=== PATIENT | female | born 1945 | race Caucasian/White ===

== ENCOUNTER → 2017-08-08 | Outpatient (CLI) | payer MEDICARE, OTHER ==
[~2017-08-08] MED LIST: CHOL100052 PO; LOR5 PO; PANT40SU3 PO; PANT40TA65 PO; RETIN A; [UNRECOGNIZED DRUG - CODE] TP; [UNRECOGNIZED DRUG - OTHER]
--- NOTE | 2017-08-10 09:35 | RADIOLOGY IMAGING REPORT ---
FACILITY: [facility] - [place] PATIENT NAME: ELIZABETH HOUSER : [id number] MR: [id number] V: [id number] EXAM DATE: [id number] ORDERING PHYSICIAN: BARRY MCGILL TECHNOLOGIST: Niharika Manjarrez PROCEDURE:BILATERAL DIGITAL SCREENING MAMMOGRAM WITH CAD ASSISTED INTERPRETATION & 3D TOMOSYNTHESIS COMPARISON:Prior mammograms 07/06/16, 05/19/15, 12/31/13, 08/24/12, 05/26/11 INDICATIONS:SCREENING FINDINGS: Moderately heterogeneous fibroglandular tissue is seen throughout the breasts. The parenchymal pattern has remained stable allowing for difference in mammographic technique & patient positioning. There are small amounts of density in the medial inferior portion of Left breast in Zone 2 for which Left breast Ultrasound is recommended. DIAGNOSTIC CATEGORY 0--INCOMPLETE: NEED ADDITIONAL IMAGING EVALUATION. RECOMMENDATIONS: ULTRASOUND: LEFT BREAST. IMPRESSION: BIRADS 0: Incomplete Left breast Ultrasound recommended as described. Dictated by: Melinda Mcghee M.D. on 08/09/2017 at 16:54 Transcribed by: MARISA on 08/10/2017 at 8:31 Approved by: Melinda Mcghee M.D. on 08/10/2017 at 9:34 [facility]
== END ==
LOC: MAMO 02:24
PROVIDERS: ATTEND Nurse Practitioner Psychiatric/Mental Health
DX: Z12.31 Encounter for screening mammogram for malignant neoplasm of breast (principal); R92.8 Other abnormal and inconclusive findings on diagnostic imaging of breast
CPT/HCPCS: 77063; 77067

== ENCOUNTER → 2017-08-23 | Outpatient (CLI) | payer MEDICARE, OTHER ==
--- NOTE | 2017-08-24 14:01 | RADIOLOGY IMAGING REPORT ---
FACILITY: [facility] - [place] PATIENT NAME: ELIZABETH HOUSER : [id number] MR: [id number] V: [id number] EXAM DATE: ORDERING PHYSICIAN: BARRY MCGILL TECHNOLOGIST: Celena Worley PROCEDURE:US LEFT BREAST COMPLETE COMPARISON:None. INDICATIONS:FURTHER EVAL FINDINGS: There is a 4mm cyst in the 1 o'clock position of the Left breast. Additional there is a 6mm cyst in the 7 o'clock position of the Left breast. The cyst in the 7 o'clock position may account for the recent mammographic findings. A 6 month follow-up Left mammogram is recommended however to document stability unless clinical findings warrant more immediate attention. DIAGNOSTIC CATEGORY 3--PROBABLY BENIGN FINDING. RECOMMENDATIONS: SIX MONTH FOLLOW-UP DIAGNOSTIC MAMMOGRAM: LEFT BREAST. IMPRESSION: BIRADS 3: Probably benign finding A 6 month follow-up Left mammogram is recommended as described above. Dictated by: Melinda Mcghee M.D. on 08/23/2017 at 17:29 Transcribed by: MARISA on 08/24/2017 at 8:48 Approved by: Melinda Mcghee M.D. on 08/24/2017 at 13:59 [facility]
== END ==
LOC: MAMO 07-28 01:03 → US 00:57
PROVIDERS: ATTEND Nurse Practitioner Psychiatric/Mental Health
DX: N60.02 Solitary cyst of left breast (principal)

== ENCOUNTER 2017-11-26 08:22 | Emergency (ER) | payer MEDICARE, OTHER ==
[2017-11-26 08:30] VITALS: BP 152/80
[2017-11-26] MEDS ORDERED: CYCLOBENZAPRINE HCL 10 MG TH PO ONE (09:15)
[2017-11-26] MEDS ORDERED: CYCL10TA29 PO (09:20)
--- NOTE | 2017-11-26 09:20 | ER Report ---
History and Physical Time Seen By MD: 08:59 Hx. of Stated Complaint: LOWER RIGHT BACK PAIN THAT OCCASSIONALLY RADIATES TO RIGHT LOWER ABDOMEN SINCE MONDAY. NO DIFFICULTY WITH URINATION. HPI/ROS CHIEF COMPLAINT: low back pain HISTORY OF PRESENT ILLNESS: This is a 72 year old female. She has had several weeks of some low back pain. Started when lifting a box overhead. Exacerbated after a recent drive to [employer]. Now with pain in the right hip area. No pain in middle or left side. Some radiation, but not much, perhaps to mid thigh. No numbness in leg. No weakness. No loss of control of bowel or bladder function. No saddle anesthesia. Allergies: Coded Allergies: tetracycline (Verified Allergy, Mild, 11/26/17) Home Meds Active Scripts Cyclobenzaprine Hcl (CYCLOBENZAPRINE HCL) 10 Mg Tablet, 10 MG PO Q8H Y for MUSCLE SPASMS, #10 TAB 0 Refills Prov:CONCETTA FIGUEROA MD 11/26/17 Discontinued Reported Medications Iodine/Sodium Iodide (IODINE MILD TINCTURE) 480 Ml Tincture, TP 04/07/16 Cholecalciferol (Vitamin D3) (VITAMIN D) 1,000 Unit Tablet, PO 04/07/16 Reviewed Nurses Notes: Yes Hx Smoking: No Constitutional Vital Sign - Last 24 Hours 11/26/17 08:30 Temp 97.6 Pulse 83 Resp 18 B/P (MAP) 152/80 Pulse Ox 93 O2 Delivery Room Air Physical Exam General appearance: alert no distress. Back: Thoracic spine has no spinal or paraspinal tenderness to palpation. Lumbar spine has no spinal tenderness moderate lower right paraspinal tenderness. Some in sciatic area. Gastroinal: Abdomen is soft, non tender, no masses.. Skin: No lesions and no rashes. Vascular: Normal capillary refill and pulses to feet. Neurological: Motor function: leg strength normal and symmetric for both legs Sensory function: normal DIFFERENTIAL DIAGNOSIS: After history and physical exam differential diagnosis was considered for back pain including muscular strain Medical Decision Making EKG/Imaging Imaging Patient prefers no imaging at this time. Imaging not thought to be helpful at this time. ED Course/Re-evaluation ED Course Discussed treating with conservative treatment, Flexeril and Tylenol, and continuing with back exercises. Follow-up with primary care and consideration for formal physical therapy and possible MRI if not improving or worsening. Decision to Disposition Date: Nov 26, 2017 Decision to Disposition Time: 09:16 Depart Departure Latest Vital Signs Vital Signs Date Time Temp Pulse Resp B/P (MAP) Pulse Ox O2 Delivery O2 Flow Rate FiO2 11/26/17 08:30 97.6 83 18 152/80 93 Room Air Impression: Primary Impression: Acute lumbar myofascial strain Condition: Improved Disposition: HOME OR SELF-CARE Referrals: BARRY MCGILLP (PCP) New Scripts Cyclobenzaprine Hcl (CYCLOBENZAPRINE HCL) 10 Mg Tablet 10 MG PO Q8H Y for MUSCLE SPASMS, #10 TAB 0 Refills Prov: CONCETTA FIGUEROA MD 11/26/17 Patient Instructions: Low Back Strain (ED) Additional Instructions: You appear to have a strain of the lumbar muscles. We would like to have you try a muscle relaxer to ease the pain and have you continue with your low back exercises. If this does not work and the pain persists or worsens, then imaging with MRI may be needed, or some formal work with a physical therapist. Follow-up with Barry this week to re-evaluate. Take Flexeril 10mg tablets, take 1/2 tablet or a full tablet every 8 hours as needed for pain. This medicine may make you drowsy, so take care when taking it. Problem Qualifiers Primary Impression: Acute lumbar myofascial strain Encounter type: initial encounter Qualified Codes: S39.012A - Strain of muscle, fascia and tendon of lower back, initial encounter CONCETTA FIGUEROA MD Nov 26, 2017 09:20
== END 2017-11-26 09:25 | disposition home or self-care (01) ==
LOC: ER 08:37
DX: S39.012A Strain of muscle, fascia and tendon of lower back, initial encounter (principal)
CPT/HCPCS: 99283

== ENCOUNTER → 2018-02-06 | Outpatient (CLI) | payer MEDICARE, OTHER ==
[~2018-02-06] MED LIST changes: +CYCL10TA29 PO
--- NOTE | 2018-02-06 16:04 | RADIOLOGY IMAGING REPORT ---
[place] [facility] [place]: ELIZABETH HOUSER : [id number] MR: [id number] V: [id number] EXAM DATE: [id number] ORDERING PHYSICIAN: BARRY MCGILL TECHNOLOGIST: Niharika Manjarrez PROCEDURE:LEFT DIGITAL DIAGNOSTIC MAMMOGRAM WITH CAD ASSISTED INTERPRETATION & 3D TOMOSYNTHESIS COMPARISON:Prior mammograms 08/08/17, 07/06/16, 05/19/15, 12/31/13, 08/24/12, 05/26/11. INDICATIONS:6 MO F/U FINDINGS: Moderately dense fibroglandular tissue is seen throughout the breasts. The parenchymal pattern has remained stable allowing for difference in mammographic technique & patient positioning. The nodular area in the medial inferior Left breast actually appears less prominent. There is no demonstration of malignant appearing mass or calcification in the Left breast. Today's Left breast Ultrasound is stable when compared to the prior study. DIAGNOSTIC CATEGORY 2--BENIGN FINDING. RECOMMENDATIONS: ROUTINE MAMMOGRAM AND CLINICAL EVALUATION. IMPRESSION: BIRADS 2: Benign finding. No significant abnormality is seen stable when compared to the prior study. Dictated by: Melinda Mcghee M.D. on 02/06/2018 at 10:06 Transcribed by: MARISA on 02/06/2018 at 10:28 Approved by: Melinda Mcghee M.D. on 02/06/2018 at 16:03 [facility]
--- NOTE | 2018-02-06 16:04 | RADIOLOGY IMAGING REPORT ---
FACILITY: [facility] PATIENT NAME: ELIZABETH HOUSER : [id number] MR: [id number] V: [id number] EXAM DATE: [id number] ORDERING PHYSICIAN: BARRY MCGILL TECHNOLOGIST: Maggie De La Garza RDMS(ABD,OBGYN,BR),RVT PROCEDURE:US LEFT BREAST COMPLETE COMPARISON:Prior Left breast Ultrasound 08/23/14. INDICATIONS:6 MO F/U FINDINGS: There is a small cyst in the 1 o'clock position of the Left breast measuring 3 x 3.5 x 2.9mm actually appears less prominent when compared to the prior study. Small ovoid cyst in the 7 o'clock position of the Left breast 4cm from the nipple also again seen measuring 6.3 x 6.4 x 3mm and appears slightly less prominent when measured in the same tissue plains. DIAGNOSTIC CATEGORY 2--BENIGN FINDING. RECOMMENDATIONS: ROUTINE MAMMOGRAM AND CLINICAL EVALUATION. IMPRESSION: BIRADS 2: Benign finding. There are 2 cysts in the Left breast 1 in the 1 o'clock position and 1 in the 7 o'clock position that actually appears slightly less prominent when compared to the prior study. Dictated by: Melinda Mcghee M.D. on 02/06/2018 at 10:08 Transcribed by: MARISA on 02/06/2018 at 10:34 Approved by: Melinda Mcghee M.D. on 02/06/2018 at 16:03 [facility]
== END ==
LOC: MAMO 07:02
PROVIDERS: ATTEND Nurse Practitioner Psychiatric/Mental Health
DX: R92.8 Other abnormal and inconclusive findings on diagnostic imaging of breast (principal)
CPT/HCPCS: 77061; 77065

== ENCOUNTER → 2018-09-14 | Outpatient (REF) | payer MEDICARE, OTHER | LOC: ZZSENDIN 12:00 | PROVIDERS: ATTEND Orthopaedic Surgery Hand Surgery | DX: M67.441 Ganglion, right hand (principal) | CPT/HCPCS: 88305 ==

== ENCOUNTER 2018-10-31 13:33 | Emergency (ER) | payer MEDICARE, OTHER ==
--- NOTE | 2018-10-31 13:36 | ER Report ---
History and Physical Time Seen By MD: 13:33 HPI/ROS CHIEF COMPLAINT: Dizziness and heart racing HISTORY OF PRESENT ILLNESS: This is a 73-year-old female who presents to emergency department for dizziness and her heart feels as though tracing. P atient states that she's been not feeling well over the last week, then approximately one hour prior to arrival she became lightheaded and dizzy and felt like her heart was racing. She also states that she has an upset stomach, no vomiting. Mild diaphoresis prior to arrival, no rashes, no fevers or chills. She denies chest pain, mild shortness of breath with chest tightness. Mild tinnitus in the left ear. REVIEW OF SYSTEMS: Constitutional: As above. Eyes: No discharge. ENT: No sore throat. Cardiovascular: As above. Respiratory: As above. Gastrointestinal: As above. Genitourinary: No hematuria. Musculoskeletal: No back pain. Skin: No rashes. Neurological: As above. Allergies: Coded Allergies: tetracycline (Verified Allergy, Mild, 11/26/17) Home Meds Active Scripts Ondansetron Hcl (ZOFRAN) 4 Mg Tablet, 4 MG PO Q4-6H PRN for prn, #20 TAB 0 Refills Prov:CHARLENE HERNANDEZ [facility]- 10/31/18 Meclizine Hcl (MECLIZINE HCL) 25 Mg Tablet, 25 MG PO BID PRN for prn, #20 TAB 0 Refills Prov:CHARLENE HERNANDEZ [facility]- 10/31/18 Discontinued Scripts Cyclobenzaprine Hcl (CYCLOBENZAPRINE HCL) 10 Mg Tablet, 10 MG PO Q8H PRN for MUSCLE SPASMS, #10 TAB 0 Refills Prov:CONCETTA FIGUEROA MD 11/26/17 Past Medical/Surgical History Patient has a past medical and surgical history of sinus infections, hypertension, seasonal allergies, I'll hernia, GERD, tubal ligation, left wrist surgery, chronic joint pain. Reviewed Nurses Notes: Yes Hx Smoking: No Constitutional Vital Sign - Last 24 Hours 10/31/18 10/31/18 10/31/18 10/31/18 13:38 14:30 15:07 15:30 Temp 97.6 Pulse 78 66 63 Resp 20 9 33 B/P (MAP) 183/93 169/97 (121) 166/80 (108) 164/78 (106) Pulse Ox 95 97 95 O2 Delivery Room Air 10/31/18 16:00 Pulse 73 Resp 15 B/P (MAP) 153/72 (99) Pulse Ox 93 Physical Exam General Appearance: The patient is alert, has no immediate need for airway protection and no signs of toxicity. Eyes: Pupils equal and round no pallor or injection. Mild fading left lateral nystagmus. EOMs intact. ENT, Mouth: Mucous membranes are moist. Respiratory: There are no retractions, lungs are clear to auscultation. Cardiovascular: Regular rate and rhythm. No murmurs, clicks or rubs. Gastrointestinal: Abdomen is soft, mild epigastric tenderness with palpation, no masses, bowel sounds normal. No abdominal bruits. Neurological: Alert and oriented 4. Moving all extremities. Following all commands. No focal neuro deficits. Skin: Warm and dry, no rashes. Musculoskeletal: Neck is supple non tender. Extremities are nontender, nonswollen and have full range of motion. DIFFERENTIAL DIAGNOSIS: After history and physical exam differential diagnosis was considered for dizziness including but not limited to peripheral and central causes of vertigo, orthostatic causes including dehydration, and blood loss. chest pain including but not limited to myocardial ischemia, pericarditis pulmonary embolus, chest wall pain, pleural inflammation and pulmonary infectious causes. Medical Decision Making Data Points Result Diagram: 10/31/18 1341 10/31/18 1341 Laboratory Hematology Test 10/31/18 13:41 10/31/18 14:59 Red Blood Count 4.46 M/uL (4.17-5.56) Mean Corpuscular Volume 88.3 fL (80.0-96.0) Mean Corpuscular Hemoglobin 29.7 pg (26.0-33.0) Mean Corpuscular Hemoglobin Concent 33.6 g/dL (32.0-36.0) Red Cell Distribution Width 13.1 % (11.5-14.5) Mean Platelet Volume 8.0 fL (7.2-11.1) Neutrophils (%) (Auto) 59.7 % (39.4-72.5) Lymphocytes (%) (Auto) 29.0 % (17.6-49.6) Monocytes (%) (Auto) 7.7 % (4.1-12.4) Eosinophils (%) (Auto) 2.6 % (0.4-6.7) Basophils (%) (Auto) 1.0 % (0.3-1.4) Nucleated RBC Relative Count (auto) 0.1 /100WBC Neutrophils # (Auto) 5.3 K/uL (2.0-7.4) Lymphocytes # (Auto) 2.6 K/uL (1.3-3.6) Monocytes # (Auto) 0.7 K/uL (0.3-1.0) Eosinophils # (Auto) 0.2 K/uL (0.0-0.5) Basophils # (Auto) 0.1 K/uL (0.0-0.1) Nucleated RBC Absolute Count (auto) 0.01 K/uL Sodium Level 138 mmol/L (137-145) Potassium Level 3.5 mmol/L (3.5-5.0) Chloride Level 106 mmol/L (98-107) Carbon Dioxide Level 22 mmol/L (22-31) Blood Urea Nitrogen 17 mg/dl (7-18) Creatinine 0.70 mg/dl (0.52-1.04) Glomerular Filtration Rate Calc > 60.0 Random Glucose 166 mg/dl (75-110) Calcium Level 8.9 mg/dl (8.4-10.2) Total Bilirubin 0.3 mg/dl (0.2-1.3) Aspartate Amino Transf (AST/SGOT) 25 U/L (0-35) Alanine Aminotransferase (ALT/SGPT) 33 U/L (0-56) Alkaline Phosphatase 92 U/L (0-126) Troponin I < 0.012 ng/ml Total Protein 6.9 g/dl (6.3-8.2) Albumin 4.0 g/dl (3.5-5.0) Urine Color Straw Urine Clarity Clear Urine pH 7.0 pH (4.8-9.5) Urine Specific Brick 1.009 Urine Protein Negative mg/dL (NEGATIVE) Urine Glucose (UA) 150 mg/dL (NEGATIVE) Urine Ketones Negative mg/dL (NEGATIVE) Urine Blood Negative (NEGATIVE) Urine Nitrite Negative (NEGATIVE) Urine Bilirubin Negative (NEGATIVE) Urine Urobilinogen Negative mg/dL (0.2-1.9) Urine Leukocyte Esterase Negative (NEGATIVE) Urine RBC <1 /HPF (0-2/HPF) Urine WBC <1 /HPF (0-5/HPF) Urine Squamous Epithelial Cells None /LPF (</=FEW) Urine Bacteria Negative /HPF (NONE-FEW) Urine Mucus None /HPF (NONE-FEW) Chemistry Test 10/31/18 13:41 10/31/18 14:59 White Blood Count 8.9 k/uL (4.5-11.0) Red Blood Count 4.46 M/uL (4.17-5.56) Hemoglobin 13.2 g/dL (12.0-16.0) Hematocrit 39.4 % (34.0-47.0) Mean Corpuscular Volume 88.3 fL (80.0-96.0) Mean Corpuscular Hemoglobin 29.7 pg (26.0-33.0) Mean Corpuscular Hemoglobin Concent 33.6 g/dL (32.0-36.0) Red Cell Distribution Width 13.1 % (11.5-14.5) Platelet Count 263 K/uL (150-450) Mean Platelet Volume 8.0 fL (7.2-11.1) Neutrophils (%) (Auto) 59.7 % (39.4-72.5) Lymphocytes (%) (Auto) 29.0 % (17.6-49.6) Monocytes (%) (Auto) 7.7 % (4.1-12.4) Eosinophils (%) (Auto) 2.6 % (0.4-6.7) Basophils (%) (Auto) 1.0 % (0.3-1.4) Nucleated RBC Relative Count (auto) 0.1 /100WBC Neutrophils # (Auto) 5.3 K/uL (2.0-7.4) Lymphocytes # (Auto) 2.6 K/uL (1.3-3.6) Monocytes # (Auto) 0.7 K/uL (0.3-1.0) Eosinophils # (Auto) 0.2 K/uL (0.0-0.5) Basophils # (Auto) 0.1 K/uL (0.0-0.1) Nucleated RBC Absolute Count (auto) 0.01 K/uL Glomerular Filtration Rate Calc > 60.0 Calcium Level 8.9 mg/dl (8.4-10.2) Total Bilirubin 0.3 mg/dl (0.2-1.3) Aspartate Amino Transf (AST/SGOT) 25 U/L (0-35) Alanine Aminotransferase (ALT/SGPT) 33 U/L (0-56) Alkaline Phosphatase 92 U/L (0-126) Troponin I < 0.012 ng/ml Total Protein 6.9 g/dl (6.3-8.2) Albumin 4.0 g/dl (3.5-5.0) Urine Color Straw Urine Clarity Clear Urine pH 7.0 pH (4.8-9.5) Urine Specific Brick 1.009 Urine Protein Negative mg/dL (NEGATIVE) Urine Glucose (UA) 150 mg/dL (NEGATIVE) Urine Ketones Negative mg/dL (NEGATIVE) Urine Blood Negative (NEGATIVE) Urine Nitrite Negative (NEGATIVE) Urine Bilirubin Negative (NEGATIVE) Urine Urobilinogen Negative mg/dL (0.2-1.9) Urine Leukocyte Esterase Negative (NEGATIVE) Urine RBC <1 /HPF (0-2/HPF) Urine WBC <1 /HPF (0-5/HPF) Urine Squamous Epithelial Cells None /LPF (</=FEW) Urine Bacteria Negative /HPF (NONE-FEW) Urine Mucus None /HPF (NONE-FEW) Urinalysis Test 10/31/18 14:59 Urine Color Straw Urine Clarity Clear Urine pH 7.0 pH (4.8-9.5) Urine Specific Brick 1.009 Urine Protein Negative mg/dL (NEGATIVE) Urine Glucose (UA) 150 mg/dL (NEGATIVE) Urine Ketones Negative mg/dL (NEGATIVE) Urine Blood Negative (NEGATIVE) Urine Nitrite Negative (NEGATIVE) Urine Bilirubin Negative (NEGATIVE) Urine Urobilinogen Negative mg/dL (0.2-1.9) Urine Leukocyte Esterase Negative (NEGATIVE) Urine RBC <1 /HPF (0-2/HPF) Urine WBC <1 /HPF (0-5/HPF) Urine Squamous Epithelial Cells None /LPF (</=FEW) Urine Bacteria Negative /HPF (NONE-FEW) Urine Mucus None /HPF (NONE-FEW) EKG/Imaging EKG Interpretation 12 lead EKG: Time of EKG 1348. Rhythm: Sinus rhythm, with a 1st degree AV block, ventricular rate 63 bpm. [place]: normal QRS: Incomplete right bundle branch block. ST segments: No ST depression or elevation identified. When compared to the fibular a 2013 EKG there is no right bundle branch block noted as noted on the current EKG. Imaging PATIENT NAME: Alisa Vazquez : 1945 MR: [id number] V: [id number] EXAM DATE: [id number] ORDERING PHYSICIAN: CHARLENE HERNANDEZ TECHNOLOGIST: Location[place] [facility] [place] Patient: Alisa Vazquez : 1945 Visit/Account:[id number] Date of Sevice: 10/31/2018 CHEST PA LAT History: dizziness, palpitations FINDINGS: Comparison studies: Chest x-ray June 15, 2013 Tubes and Lines: None. Lungs and pleura: Well aerated. No evidence of focal consolidation or pleural effusions. Mediastinum: normal. Cardiac silhouette: normal . Osseous structures: Unremarkable for age . IMPRESSION: Normal chest Report Dictated By: Shiv Whitfield MD at 10/31/2018 2:23 PM Report E-Signed By: Shiv Whitfield MD at 10/31/2018 2:23 PM WSN:[id number] PATIENT NAME: Alisa Vazquez : 1945 MR: [id number] V: [id number] EXAM DATE: [id number] ORDERING PHYSICIAN: CHARLENE HERNANDEZ TECHNOLOGIST: Location: [facility] [place] Patient: Alisa Vazquez : 1945 Visit/Account:[id number] Date of Sevice: 10/31/2018 CT Head without contrast Indication: No evidence of dizziness. Comparison: None available Technique: Axial CT images were obtained through the brain from the skull base to the vertex without administration of IV contrast. Reformatted coronal and sagittal images were also obtained. One of the following dose optimization techniques was utilized in the perfor hanna of this exam: automated exposure control; adjustment of the mA and/or kV according to the patient's size; or use of an iterative reconstruction technique. Specific details can be referenced in the facility's radiology CT exam operational policy. Findings: No evidence of mass, mass effect, or midline shift. No acute intracranial hemorrhage or acute territorial infarction. No extra-axial fluid collection or hydrocephalus. Age-related cerebral atrophy. Mild periventricular white matter ischemic changes consistent small vessel disease. Ann/white matter differentiation appears normal. Mild bilateral internal carotid artery calcifications. Bony structures show no fractures or lesions. Mild rightward deviation nasal septum. The lateral right scalp does show a filling benign nonaggressive calcification. The visualized paranasal sinuses and mastoid air cells are clear. IMPRESSION: 1. Senescent changes without acute abnormality. Report Dictated By: Wolf Ortiz at 10/31/2018 3:50 PM Report E-Signed By: Wolf Ortiz at 10/31/2018 3:58 PM WSN:[email or web address] ED Course/Re-evaluation Clinical Indication for ER IV: Hydration, IV Access ED Course The patient was admitted to room. A history and physical were obtained. Differ ential diagnoses were considered. An IV was started. A CBC, CMP were obtained. A 1 L normal saline bolus was given. 4 mg IV Zofran. Patient states the nausea has improved after the Zofran. Negative two-view chest x-ray. CBC, CMP unremarkable. Negative troponin. EKG showing sinus rhythm with an incomplete right bundle branch block. The patient remained symptomatic, I did recommend a CT of the brain as she's never had anything like this in the past, CT of the brain was negative for any acute pathology, patient was given 25 mg by mouth meclizine, patient states significant improvement in her symptoms. I did review the results with the patient, did tell her this is likely positional vertigo, she can take meclizine as needed as well as Zofran, I also recommended increasing her fluid intake and following up with her primary care provider within the next 2 days for reevaluation. Patient expressed understanding and was discharged home. Decision to Disposition Date: Oct 31, 2018 Decision to Disposition Time: 16:12 Depart Departure Latest Vital Signs Vital Signs Date Time Temp Pulse Resp B/P (MAP) Pulse Ox O2 Delivery O2 Flow Rate FiO2 10/31/18 16:00 73 15 153/72 (99) 93 10/31/18 13:38 97.6 Room Air Impression: Primary Impression: Positional vertigo Condition: Improved Disposition: HOME OR SELF-CARE Referrals: BARRY MORA (PCP) 2 Days New Scripts Ondansetron Hcl (ZOFRAN) 4 Mg Tablet 4 MG PO Q4-6H PRN for prn, #20 TAB 0 Refills Prov: CHARLENE HERNANDEZP-BC 10/31/18 Meclizine Hcl (MECLIZINE HCL) 25 Mg Tablet 25 MG PO BID PRN for prn, #20 TAB 0 Refills Prov: CHARLENE HERNANDEZ 10/31/18 Patient Instructions: Vertigo (ED) Additional Instructions: Your lab studies, brain CT and EKG did not show anything concerning. Be sure to drink plenty of water. Get plenty of rest. You can try the Meclizine as needed for dizziness. Zofran for Nausea. Follow up with Barry Mora as scheduled this Monday. Return to the ED for any other concerns or worsening symptoms. CHARLENE HERNANDEZ-JESSICA Oct 31, 2018 13:36
[2018-10-31] MEDS ORDERED: NS(*) 0.9% 1000 ML BAG 1,000 ML IV ONE (13:47)
[2018-10-31] MEDS ORDERED: ASPIRIN 81 MG CHEW PO ONE (13:50)
[2018-10-31] MEDS ORDERED: ONDANSETRON 4 MG/2 ML VIAL IVP ONE (13:50)
[2018-10-31 13:55] LABS: PLATELET COUNT, AUTOMATED 263 K/uL (150-450)
--- NOTE | 2018-10-31 14:29 | RADIOLOGY IMAGING REPORT ---
FACILITY: [facility] - [place] PATIENT NAME: Alisa Vazquez : 1945 MR: [id number] V: [id number] EXAM DATE: ORDERING PHYSICIAN: CHARLENE HERNNADEZ TECHNOLOGIST: Location: [facility] - [place] Patient: Alisa Vazquez : 1945 Visit/Account:[id number] Date of Sevice: 10/31/2018 CHEST PA LAT History: dizziness, palpitations FINDINGS: Comparison studies: Chest x-ray June 15, 2013 Tubes and Lines: None. Lungs and pleura: Well aerated. No evidence of focal consolidation or pleural effusions. Mediastinum: normal. Cardiac silhouette: normal . Osseous structures: Unremarkable for age . IMPRESSION: Normal chest Report Dictated By: Shiv Whitfield MD at 10/31/2018 2:23 PM Report E-Signed By: Shiv Whitfield MD at 10/31/2018 2:23 PM WSN:[id number]
--- NOTE | 2018-10-31 14:39 | EKG ---
FACILITY: [facility] PATIENT NAME: ELIZABETH HOUSER : [id number] MR: [id number] V: [id number] EXAM DATE: ORDERING PHYSICIAN: CHARLENE HERNANDEZ TECHNOLOGIST: RICKY Test Reason : DIZZINESS Blood Pressure : / mmHG Vent. Rate : 063 BPM Atrial Rate : 063 BPM P-R Int : 214 ms QRS Dur : 134 ms QT Int : 450 ms P-R-T Axes : 075 069 030 degrees QTc Int : 460 ms Sinus rhythm with 1st degree AV block Left bundle branch block When compared with ECG of 15-JUN-2013 08:54, [place] interval has increased QRS duration has increased Minimal criteria for Anterior infarct are no longer present QT has lengthened Confirmed by MIRYAM DAVID ([id number]) on 10/31/2018 6:18:24 PM Referred By: CHARLENE Confirmed By:MIRYAM DAVID
[2018-10-31] MEDS ORDERED: MECLIZINE HCL 25 MG TAB PO ONE (15:10)
[2018-10-31 16:00] VITALS: BP 153/72
--- NOTE | 2018-10-31 16:04 | RADIOLOGY IMAGING REPORT ---
FACILITY: [facility] - [place] PATIENT NAME: Alisa Vazquez : 1945 MR: [id number] V: [id number] EXAM DATE: ORDERING PHYSICIAN: CHARLENE HERNANDEZ TECHNOLOGIST: Location: Patient: Alisa Vazquez : 1945 Visit/Account:[id number] Date of Sevice: 10/31/2018 CT Head without contrast Indication: No evidence of dizziness. Comparison: None available Technique: Axial CT images were obtained through the brain from the skull base to the vertex without administration of IV contrast. Reformatted coronal and sagittal images were also obtained. One of the following dose optimization techniques was utilized in the performance of this exam: autom ated exposure control; adjustment of the mA and/or kV according to the patient's size; or use of an i terative reconstruction technique. Specific details can be referenced in the facility's radiology CT exam operational policy. Findings: No evidence of mass, mass effect, or midline shift. No acute intracranial hemorrhage or acute territorial infarction. No extra-axial fluid collection or hydrocephalus. Age-related cerebral atrophy. Mild periventricula r white matter ischemic changes consistent small vessel disease. Ann/white matter differentiation a ppears normal. Mild bilateral internal carotid artery calcifications. Bony structures show no fractures or lesions. Mild rightward deviation nasal septum. The lateral ri ght scalp does show a filling benign nonaggressive calcification. The visualized paranasal sinuses and mastoid air cells are clear. IMPRESSION: 1. Senescent changes without acute abnormality. Report Dictated By: Wolf Ortiz at 10/31/2018 3:50 PM Report E-Signed By: Wolf Ortiz at 10/31/2018 3:58 PM WSN:[id number]
[2018-10-31] MEDS ORDERED: ONDA4TAB97 PO (16:15)
[2018-10-31] MEDS ORDERED: MECL25TA9 PO (16:15)
== END 2018-10-31 16:27 | disposition home or self-care (01) ==
LOC: ER 13:59
DX: R42 Dizziness and giddiness (principal)
CPT/HCPCS: 70450; 71046; 81001; 84484; 85025; 93005; 96361; 96374; 99284; A9270; J2405; J7030; J8597; 82040; 82247; 82310; 82374; 82435; 82565; 82947; 84075; 84132; 84155; 84295; 84450; 84460; 84520